=== PATIENT | female | born 1965 | race African-American/Black ===

== ENCOUNTER 2016-04-14 07:36 | Emergency (ER) | payer OTHER ==
[~2016-04-14] VITALS: Ht 152.4 cm; Wt 62.6 kg
[2016-04-14 07:46] VITALS: BP 108/55
--- NOTE | 2016-04-14 07:46 | NUR ---
Patient ambulated to bed 5 after providing a urine specimen. RN evaluating patient at bedside.
--- NOTE | 2016-04-14 07:50 | NUR ---
51/F BIB SELF C/O LOWER ABDOMINAL PAIN X 5 DAYS.PATIENT.PT DENIES N/V/D; SKIN IS PINK/WARM/DRY; AAOX4 WITH EVEN AND STEADY GAIT; LUNGS CLEAR BL; HR EVEN AND REGULAR; PT DENIES ANY FEVER, CP, SOB, OR COUGH AT THIS TIME; PATIENT STATES LOWER ABDOMINAL PAIN OF 5/10 AT THIS TIME; VSS; PATIENT POSITIONED FOR COMFORT; HOB ELEVATED; BEDRAILS UP X2; BED DOWN. ER MD MADE AWARE OF PT STATUS.
--- NOTE | 2016-04-14 08:00 | NUR ---
ER MD DR WADDELL EVALUATING PT AT BEDSIDE.
--- NOTE | 2016-04-14 09:00 | NUR ---
Note augusto in EDM - 04/14/16 at 0951 by [facility] Patient discharged with v/s stable. Written and verbal after care instructions given and explained. Patient alert, oriented and verbalized understanding of instructions. Ambulatory with steady gait. All questions addressed prior to discharge. ID band removed. Patient advised to follow up with PMD. Rx of FLAGYL given. Patient educated on indication of medication including possible reaction and side effects. Opportunity to ask questions provided and answered.
[2016-04-14] MEDS ORDERED: cefTRIAXone 250 MG in LIDOCAINE 1% ED 0.9 ML IM ONE (09:15)
[2016-04-14] MEDS ORDERED: AZITHROMYCIN 250 MG TAB PO ONE (09:15)
[2016-04-14] MEDS ORDERED: metroNIDAZOLE 250 MG TAB PO ONE (09:30)
[2016-04-14 09:46] VITALS: BP 117/69
--- NOTE | 2016-04-14 09:46 | NUR ---
atient discharged with v/s stable. Written and verbal after care instructions given and explained. Patient alert, oriented and verbalized understanding of instructions. Ambulatory with steady gait. All questions addressed prior to discharge. ID band removed. Patient advised to follow up with PMD. Rx of FLAGYL given. Patient educated on indication of medication including possible reaction and side effects. Opportunity to ask questions provided and answered.
== END 2016-04-14 09:46 | disposition home or self-care (01) ==
LOC: MED 07:36
DX: N76.0 Acute vaginitis (principal); Z11.3 Encounter for screening for infections with a predominantly sexual mode of transmission
CPT/HCPCS: 36415; 81002; 81025; 87210; 87491; 96372; 99284; J0696; J2001